=== PATIENT | male | born 1985 | race Caucasian/White ===

== ENCOUNTER 2023-05-05 18:15 | Emergency (ER) | payer SELFPAY ==
[2023-05-05 18:17] VITALS: BP 148/90; PULSE 77; RESP 16; TEMP 36.7; O2SAT 98; BMI 23.8
[2023-05-05 18:33] VITALS: O2SAT 98
--- NOTE | 2023-05-05 19:26 | EKG12_ITS ---
Test Reason : DYSRHYTHMIA Blood Pressure : / mmHG Vent. Rate : 080 BPM Atrial Rate : 080 BPM P-R Int : 142 ms QRS Dur : 080 ms QT Int : 376 ms P-R-T Axes : 066 033 049 degrees QTc Int : 433 ms Normal sinus rhythm Normal ECG Confirmed by ISAS KNUTSON, AARON ([id number]), avid editor ABENA HARRIS ([id number]) on 05/07/2023 9:48:17 AM Referred By: EMMETT Confirmed By:AARON PARSONS MD
--- NOTE | 2023-05-05 19:40 | RAD_ITS ---
INDICATION: chest pain EXAMINATION/TECHNIQUE: X-RAY - XR Chest 1 View COMPARISON: None. FINDINGS: LINES/DEVICES: None. LUNGS: No consolidation, edema or effusion. No pneumothorax. MEDIASTINUM AND CARDIOVASCULAR STRUCTURES: Cardiac silhouette not enlarged. Central airways and mediastinal contour are normal. BONES AND SOFT TISSUES: Degenerative changes of the spine.. RAD/Chest 1 View (Portable) IMPRESSION: No radiographic evidence of acute cardiopulmonary disease. Electronically Signed: Adarsh Holly MD at 20:06 EST ,
--- NOTE | 2023-05-05 19:41 | ED.VIS.DYS ---
HPI History of Present Illness Chief Complaint: Shortness of Breath Narrative Narrative: 38-year-old male presenting with multiple complaints. Patient states he had a stroke in September and had left-sided deficits which resolved. He spent 3 days in the hospital. He recalls that he had a negative bubble study and he was told he had hypertension and hyperlipidemia. He was also put on it sounds like Plavix. Patient states he never picked up his medications and has not followed up with anybody since then. He is a smoker. He states that over the last few months he has noticed that he is getting intermittent numbness and tingling in his bilateral hands. He gets short of breath at times. His significant other states that he cannot walk very long distances without getting fatigued. He has not had a fever or chills. He is not coughing. He does have a history of emphysema. Patient states he does have health insurance and has not followed up with a PCP. His states that he does snore but does not stop breathing but he does have severe snoring. He is never had a sleep study. Patient also states he is having intermittent chest pains which are right-sided in the left side at times. No history of cardiac disease that the patient knows of. Patient also reports that he has intermittent headaches which last only minutes at a time. He states he will sit down and drink water his headache resolved. PFSH [facility] Home Medications aspirin 81 mg tablet,delayed release 81 mg PO DAILY #30 tabs 05/05/23 [Rx Last Taken Unknown] atorvastatin 80 mg tablet 80 mg PO DAILY #30 tabs 05/05/23 [Rx Last Taken Unknown] clopidogrel 75 mg tablet (Plavix) 75 mg PO DAILY #30 tabs 05/05/23 [Rx Last Taken Unknown] Allergy/AdvReac Type Severity Reaction Status Date / Time No Known Allergies Allergy Verified 05/05/23 18:16 Social History Smoking Status: Current every day smoker tobacco type: cigarettes ROS ROS ED Constitutional Constitutional ED: Denies chills, fever(s) or sweats Eyes Eyes: Denies blurry vision or change in vision ENT ENT ED: Denies ear pain or sore throat Cardiovascular Cardiovascular: Reports chest pain; Denies palpitations or racing heartbeat Respiratory/Chest Respiratory/Chest: Reports dyspnea; Denies sputum Gastrointestinal Gastrointestinal: Denies abdominal pain, constipation, diarrhea, nausea or vomiting Genitourinary Genitourinary ED: Denies dysuria, hematuria or urinary frequency Musculoskeletal Musculoskeletal: Denies arthralgias, myalgias or neck pain Integumentary Denies abscess, Abrasions or rash Neurologic Neurologic: Reports headache(s); Denies paresthesias or weakness Psychiatric Psychiatric: Denies anxiety, depression, suicidal ideation or suicidal thoughts Endocrine Endocrinology: Denies polydipsia or polyuria EXAM Physical Exam Const Vital Signs: 05/05/23 18:17 05/05/23 18:33 05/05/23 21:27 Temperature 98.0 F Temperature Source Temporal Pulse Rate 77 71 Respiratory Rate 16 18 Respiratory Effort Normal Non-Labored Respiratory Depth Normal Respiratory Pattern Normal Blood Pressure 148/90 H 157/98 H Blood Pressure Mean 109 117 Pulse Ox 98 97 Oxygen Delivery Method Room Air Room Air Positive well nourished General Appearance ED: NAD; Negative for pallor HEENT Reports moist mucous membranes atraumatic Eyes PERRL and EOMs intact bilaterally Neck no lymphadenopathy Resp normal respiratory effort and clear to auscultation bilaterally Auscultation: Negative for rales, rhonchi or wheezes Cardio regular rhythm GI non-tender and non-distended Extremity normal to inspection General Extremety ED: Negative for edema General Extremity: Negative for edema Neuro oriented x3 and CN's II-XII intact bilaterally Sensorium / Orientation: alert Psych mental status grossly normal Skin no wounds and skin turgor normal General Skin Exam: Negative for jaundice or pallor MDM MDM MDM Narrative Medical decision making narrative: 38-year-old male presenting with multiple complaints. Differential includes ACS, pneumonia, CHF, COPD, dehydration, electrolyte abnormalities, anemia, hypothyroidism, diabetes. We will obtain a CBC to assess white blood cell count, hemoglobin, platelets. BMP to assess renal function electrolytes. EKG high-sensitivity troponin to assess for ischemia/dysrhythmia. BNP to assess for CHF. TSH to check thyroid level. Chest x-ray to rule out pneumonia or CHF. Medical record review from [facility] showed that the patient on September 21, 2022 was an acute stroke with left-sided weakness and slurred speech. He was a tPA candidate and received tPA. His MRI showed multiple infarcts. Echocardiogram was reviewed and was normal with no PFO. Patient was started on aspirin, Plavix, statin. He never took this. I will refill his medications. He will need follow-up so give him a ER follow-up and recommended that he try to obtain a regular physician. Patient CBC, BMP unremarkable exception of potassium 3.4. TSH is normal 1.52. High-sensitivity troponin is 13. BNP is 34.2. EKG on my interpretation shows normal sinus rhythm with a ventricular rate of 80 bpm without sign ischemic change or ectopy. Chest x-ray shows no acute process. Given the patient's ultimately negative work-up I feel stable for discharge. Patient counseled to discontinue smoking. Impression: 1. Dyspnea 2. Chest pain 3. History of CVA 4. Medical noncompliance 5. Tobacco abuse Lab Data Attestation: I reviewed the patient's lab results. Labs: Laboratory Results - last 24 hr 05/05/23 18:30 WBC 9.8 RBC 4.87 Hgb 14.7 Hct 44.3 MCV 91.0 MCH 30.2 MCHC 33.2 RDW Std Deviation 41.8 RDW Coeff of Miguelina 12.6 Plt Count 294 MPV 11.2 Immature Gran % (Auto) 0.200 Neut % (Auto) 58.7 Lymph % (Auto) 30.3 Hidalgo % (Auto) 7.5 Eos % (Auto) 2.8 Baso % (Auto) 0.5 Absolute Neuts (auto) 5.7 Absolute Lymphs (auto) 2.95 Nucleated RBC % 0 Sodium 139 Potassium 3.4 L Chloride 108 H Carbon Dioxide 29.0 Anion Gap 2 L BUN 10 Creatinine 0.92 Estim Creat Clear Calc 114.81 Est GFR (MDRD) Af Amer 118 Est GFR (MDRD) Non-Af 97 BUN/Creatinine Ratio 10.9 Glucose 122 H Calcium 9.0 Troponin I High Sens 13 B-Natriuretic Peptide 34.2 TSH 1.52 Radiography Diagnostic Testing: Clinical Impression(s) from Imaging Studies Chest X-Ray 05/05/23 19:40 IMPRESSION: No radiographic evidence of acute cardiopulmonary disease. Electronically Signed: Aadrsh Holly MD at 20:06 EST , Discharge Plan Triage Chief Complaint: Shortness of Breath Other Complaint: Numb/Ting ED Provider: Rafael Plasencia Dx/Rx/DC Orders Instructions: ED Chest Pain, Uncertain Cause, ED Dyspnea Prescriptions: New atorvastatin 80 mg tablet 80 mg PO DAILY Qty: 30 0RF clopidogrel [Plavix] 75 mg tablet 75 mg PO DAILY Qty: 30 0RF aspirin 81 mg tablet,delayed release (DR/EC) 81 mg PO DAILY Qty: 30 0RF Primary Care Provider: Care Physician,No Primary Referrals: Dinora Freed MD [Med Staff - Active Staff] - As soon as possible Care Physician,No Primary [Primary Care Provider] - Disposition Disposition: Home, Self Care
[2023-05-05 19:46] LABS: Absolute Lymphocyte Count 2.95 X10^3/uL (0.83-4.51); Absolute Neutrophil Count 5.7 X10^3/uL (2.0-7.7); Basophil# 0.05 X10^3/uL; Basophil% 0.5 % (0-1); Eosinophil# 0.27 X10^3/uL; Eosinophils% 2.8 % (0-5); Hematocrit 44.3 % (40-54); Hemoglobin 14.7 g/dL (13.0-16.5); Lymphocyte # 2.95 X10^3/ul (0.83-4.51); Lymphocyte % 30.3 % (19-41); Mean Corp Hgb Conc 33.2 g/dL (32-36); Mean Corpuscular Hgb 30.2 pg (27.0-32.0); Mean Platelet Vol. 11.2 fl (6.2-12.0); Monocyte# 0.73 X10^3/uL; Monocyte% 7.5 % (0-10); NRBC Flagged by Analyzer 0 % (0-5); Neutrophil # 5.73 X10^3/uL (2.7-7.7); Neutrophil % 58.7 % (47-70); Platelet Count 294 K/mm3 (150-450); RBC Distribution Width CV 12.6 % (11.6-14.6); RBC Distribution Width SD 41.8 fl (35.1-43.9); Red Blood Count 4.87 M/mm3 (4.6-6.2); White Blood Count 9.8 K/mm3 (4.4-11.0)
[2023-05-05 20:10] LABS: Anion Gap 2 (5-15); BUN 10 mg/dL (7-18); BUN/Creat Ratio 10.9 RATIO (10-20); Chloride 108 mmol/L (98-107); Creatinine, Serum 0.92 mg/dL (0.70-1.30); EST Glomerular Filtration Rate 97 mL/min (>60); Est Glom Filt Rate - Afr Amer 118 mL/min (>60); Estimated Creatinine Clearance 114.81 ml/min; Glucose 122 mg/dL (74-106); Potassium 3.4 mmol/L (3.5-5.1); Sodium Level 139 mmol/L (136-145); Thyroid Stim Hormone (TSH) 1.52 uIU/mL (0.358-3.74); Troponin-I HS 13 pg/mL (3.0-78.0)
[2023-05-05 20:14] LABS: BNP,B-Type NATRIURETIC PEPTIDE 34.2 pg/mL (0-100)
[2023-05-05 21:27] VITALS: BP 157/98; PULSE 71; RESP 18; O2SAT 97
--- NOTE | 2023-05-05 21:47 | ED.RN ---
DISCHARGE MEDICATIONS SENT TO [facility]. RX CALLED AND SCRIPTS ARE 259.08. PT STATES HE DOES NOT HAVE THAT MONEY WITH HIM. INQUIRED IF PATIENT HAS INSURANCE IN WHICH HE STATED HE JUST GOT INSURANCE THROUGH WORK. EDUCATED PATIENT ON MEDICATION COMPLIANCE IMPORTANCE ESPECIALLY GIVEN HISTORY. PATIENT STATES THAT HE WILL CALL HIS BOSS TOMORROW TO INQUIRE ABOUT INSURANCE CARD. TOLD PATIENT THAT MEDICATIONS WOULD BE AVAILABLE AT OUR [facility] SUNDAY AND IF HE CAN BRING IN INSURANCE INFORMATION, THEY CAN PROCESS THAT THEN. OTHERWISE THEY WILL BE AVAILABLE FOR THE 259.08.
== END 2023-05-05 21:49 | disposition home or self-care (01) ==
PROVIDERS: Emergency Provider Student in an Organized Health Care Education/Training Program; Visit Provider Student in an Organized Health Care Education/Training Program
DX: R06.00 Dyspnea, unspecified (principal); J43.9 Emphysema, unspecified; R07.9 Chest pain, unspecified; R06.83 Snoring; I10 Essential (primary) hypertension; E78.5 Hyperlipidemia, unspecified; T39.016A Underdosing of aspirin, initial encounter; T45.526A Underdosing of antithrombotic drugs, initial encounter; Z91.148 Patient's other noncompliance with medication regimen for other reason; F17.210 Nicotine dependence, cigarettes, uncomplicated; Z86.73 Personal history of transient ischemic attack (TIA), and cerebral infarction without residual deficits
CPT/HCPCS: 71045; 80048; 83880; 84443; 84484; 85025; 93005; 99285; A4216